=== PATIENT | female | born 2000 | race Caucasian/White ===

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

== ENCOUNTER 2023-04-17 16:45 | Emergency (ER) | payer OTHER ==
[~2023-04-17] VITALS: Ht 160 cm; Wt 68.9 kg
[~2023-04-17 16:45] MED LIST changes: +PYRIDIUM200 M1 PO; +SEPTDS PO
[2023-04-17 18:24] LABS: BILIRUBIN Negative (Negative); BLOOD 3+ (Negative); CLARITY Clear (Clear); COLOR Yellow (Yellow); GLUCOSE Negative (Negative); KETONE Trace (Negative); LEUKO ESTERASE 1+ (Negative); NITRITE Negative (Negative)
[2023-04-17 18:31] LABS: HEMATOCRIT 42.9 % (37.0-47.0); MEAN CELL VOLUME 86.3 fl (81.0-99.0); MEAN CORPUSCULAR HGB 28.4 pg (27.0-31.0); MEAN CORPUSCULAR HGB CONC 32.9 g/dl (33.0-37.0); PLATELET COUNT AUTOMATED 271 10*3/uL (130-400); RED BLOOD COUNT 4.97 10*6/uL (4.10-5.10); RED CELL DISTRI WIDTH 12.2 % (0-14.5); WHITE BLOOD COUNT 12.7 10*3/uL (4.8-10.8)
[2023-04-17 18:32] LABS: MANUAL DIFF REFLEX YES
[2023-04-17 18:33] LABS: PH 8.5 (4.5-8.0)
[2023-04-17 18:38] LABS: RBC 51-100 rbc/hpf (0-2)
[2023-04-17 18:39] LABS: BACTERIA 3+; WBC 41-50 wbc/hpf (0-5)
[2023-04-17 18:55] LABS: BUN 7 mg/dl (9-23); CHLORIDE 106 mmol/L (98-107); PLATELET SUFFICIENCY NORMAL (NORMAL); POTASSIUM 4.3 mmol/L (3.4-5.1); TOTAL CELLS COUNTED 100 #CELLS
[2023-04-17 18:56] LABS: BURR CELLS FEW
[2023-04-17 18:58] LABS: SGPT/ALT < 7 U/L (5-49)
[2023-04-17] MEDS ORDERED: SODIUM CHLORIDE 0.9% 1,000 ML IV ONE (19:05)
[2023-04-17] MEDS ORDERED: Ketorolac Tromethamine 15 MG/ML VIAL IV ONE (19:05)
[2023-04-17] MEDS ORDERED: IOHEXOL 300 MG/ML 100 ML VIAL IV ONE (19:20)
[2023-04-17] MEDS ORDERED: MACROBID100 M1 PO (20:52)
[2023-04-17] MEDS ORDERED: Nitrofurantoin Monohydrate/N 100 MG CAP PO ONE (20:55)
== END 2023-04-17 20:57 | disposition home or self-care (01) ==
LOC: ED 16:45
PROVIDERS: Nurse Practitioner Family
DX: N39.0 Urinary tract infection, site not specified (principal); Z98.890 Other specified postprocedural states